=== PATIENT | female | born 1995 | race African-American/Black ===

== ENCOUNTER 2016-02-26 22:26 | Emergency (ER) | payer MEDICAID ==
[~2016-02-26] VITALS: Ht 154.9 cm; Wt 50.0 kg
[~2016-02-26 22:26] MED LIST: BACT800T5 PO
[2016-02-26 22:29] VITALS: BP 124/68; PULSE 89; RESP 18; TEMP 97.4; O2SAT 100
== END 2016-02-27 00:45 | disposition left against medical advice (07) ==
LOC: NED 23:59
DX: R10.9 Unspecified abdominal pain (principal)
CPT/HCPCS: 99281